=== PATIENT | female | born 1965 | race Two or more races ===

== ENCOUNTER 2020-02-06 13:50 | Emergency (ER) | payer SELFPAY ==
[~2020-02-06] VITALS: Ht 142.2 cm; Wt 55.0 kg
[2020-02-06 14:05] VITALS: BP 160/69
[2020-02-06] MEDS ORDERED: ACETAMINOPHEN 325MG TABLET PO ONE (15:15)
== END 2020-02-06 16:34 | disposition home or self-care (01) ==
LOC: ER 14:11
DX: M25.562 Pain in left knee (principal); Z88.6 Allergy status to analgesic agent; Z98.890 Other specified postprocedural states
CPT/HCPCS: 99284